=== PATIENT | male | born 1995 | race African-American/Black ===

== ENCOUNTER 2017-02-01 14:45 | Emergency (ER) | payer SELFPAY ==
[~2017-02-01] VITALS: Ht 182.9 cm; Wt 74.4 kg
[~2017-02-01 14:45] MED LIST: ALBU8.5H3 IH; BENZ100C PO; HYDR-2666 PO; IBUP800T PO; MUPI15CR TP; NAPR500T3 PO; SULF1TAB24 PO; [UNRECOGNIZED DRUG - CODE] MM; [UNRECOGNIZED DRUG - CODE] PO
[2017-02-01 15:03] VITALS: BP 142/83
--- NOTE | 2017-02-01 15:44 | PHYS DOC ---
Past History Past Medical History: No Pertinent History Past Surgical History: No Surgical History Alcohol Use: None Drug Use: None Adult General Chief Complaint Chief Complaint: BACK PAIN OR INJURY [facility] HPI 21-year-old female patient complaining of back pain for the last one week as a constant pain just radiation, no lives, fever chills, injury. 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 Review of Systems Review of Systems Constitutional: Denies fever or chills [] Eyes: Denies change in visual acuity, redness, or eye pain [] HENT: Denies nasal congestion or sore throat [] Respiratory: Denies cough or shortness of breath [] Cardiovascular: No additional information not addressed in HPI [] GI: Denies abdominal pain, nausea, vomiting, bloody stools or diarrhea [] : Denies dysuria or hematuria [] Musculoskeletal: see HPI Integument: Denies rash or skin lesions [] Neurologic: Denies headache, focal weakness or sensory changes [] Endocrine: Denies polyuria or polydipsia [] Current Medications Current Medications Current Medications Medications (Trade) Dose Ordered Sig/Stephon Start Time Stop Time Status Last Admin Dose Admin Cyclobenzaprine HCl (Flexeril) 10 mg 1X ONCE 02/01/17 16:00 02/01/17 16:01 Ibuprofen (Motrin) 600 mg 1X ONCE 02/01/17 16:00 02/01/17 16:01 Allergies Allergies Allergies Coded Allergies Type Severity Reaction Last Updated Verified No Known Drug Allergies 02/01/17 No Physical Exam Physical Exam Constitutional: Well developed, well nourished, mild distress, non-toxic appearance. [] HENT: Normocephalic, atraumatic, bilateral external ears normal, oropharynx moist, no oral exudates, nose normal. [] Eyes: PERRLA, EOMI, conjunctiva normal, no discharge. [] Neck: Normal range of motion, no tenderness, supple, no stridor. [] Cardiovascular:Heart rate regular rhythm, no murmur [] Lungs & Thorax: Bilateral breath sounds clear to auscultation [] Abdomen: Bowel sounds normal, soft, no tenderness, no masses, no pulsatile masses. [] Skin: Warm, dry, no erythema, no rash. [] Back: no deformity or midline tenderness,limited ROM of thoracic spine] Extremities: No tenderness, no cyanosis, no clubbing, ROM intact, no edema. [] Neurologic: Alert and oriented X 3, normal motor function, normal sensory function, no focal deficits noted. [] Psychologic: Affect normal, judgement normal, mood normal. [] Current Patient Data Vital Signs Vital Signs Date Time Temp Pulse Resp B/P Pulse Ox O2 Delivery O2 Flow Rate FiO2 02/01/17 15:03 99.0 109 18 96 Room Air EKG EKG [] Radiology/Procedures Radiology/Procedures [] Dragon Disclaimer Dragon Disclaimer This chart was dictated in whole or in part using Voice Recognition software in a busy, high-work load, and often noisy Emergency Department environment. It may contain unintended and wholly unrecognized errors or omissions. Departure Departure: Impression: Primary Impression: Thoracic sprain Disposition: HOME, SELF-CARE (at 1549) Condition: STABLE Referrals: PCP,NO (PCP) Patient Instructions: Thoracic Strain Additional Instructions: Apply ice on your back Follow up with your doctor as needed Scripts Naproxen (Naprosyn)500 Mg Tablet1 Tab PO BID #14 TAB Ref 1 Prov:ALICIA HERNÁNDEZ MD 02/01/17 Cyclobenzaprine Hcl 10 Mg Tablet1 Tab PO TID #30 TAB Prov:ALICIA HERNÁNDEZ MD 02/01/17 ALICIA HERNÁNDEZ MD Feb 01, 2017 15:44
[2017-02-01] MEDS ORDERED: CYCL10TA2 PO (15:51)
[2017-02-01] MEDS ORDERED: NAPR500T PO (15:51)
[2017-02-01] MEDS ORDERED: IBUPROFEN 600 MG TABLET. PO ONE (16:00)
[2017-02-01] MEDS ORDERED: CYCLOBENZAPRINE 10 MG TABLET. PO ONE (16:00)
== END 2017-02-01 15:52 | disposition home or self-care (01) ==
LOC: ER 14:45
DX: S23.3XXA Sprain of ligaments of thoracic spine, initial encounter (principal); X58.XXXA Exposure to other specified factors, initial encounter; Y93.89 Activity, other specified; Y99.8 Other external cause status; Y92.89 Other specified places as the place of occurrence of the external cause
CPT/HCPCS: 99283

== ENCOUNTER 2017-02-25 08:54 | Emergency (ER) | payer SELFPAY ==
[~2017-02-25] VITALS: Ht 182.9 cm; Wt 74.4 kg
[~2017-02-25 08:54] MED LIST changes: +CYCL10TA2 PO; +NAPR500T PO
[2017-02-25 09:02] VITALS: BP 140/84
[2017-02-25] MEDS ORDERED: NAPR550T3 PO (09:15)
--- NOTE | 2017-02-25 09:24 | ED.ADGEN ---
Past History Past Medical History: No Pertinent History Past Surgical History: No Surgical History Alcohol Use: None Drug Use: None Adult General HPI HPI Patient is a 21-year-old male presents emergency department complaining of back pain. He tells me that he has had "years of back issues" that have gotten worse the last 1 month. 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 He reports that he has been taking the naproxen and Flexeril that was prescribed to him one month ago when he presented emergency Department for the same problem. Continues to have pain. Denies any bowel or bladder dysfunction or saddle anesthesia. Review of Systems Review of Systems Constitutional: Denies fever or chills [] Eyes: Denies change in visual acuity, redness, or eye pain [] HENT: Denies nasal congestion or sore throat [] Respiratory: Denies cough or shortness of breath [] Cardiovascular: No additional information not addressed in HPI [] GI: Denies abdominal pain, nausea, vomiting, bloody stools or diarrhea [] : Denies dysuria or hematuria [] Musculoskeletal: Denies back pain or joint pain [] Integument: Denies rash or skin lesions [] Neurologic: Denies headache, focal weakness or sensory changes [] Endocrine: Denies polyuria or polydipsia [] Current Medications Current Medications Current Medications Medications (Trade) Dose Ordered Sig/[facility] Start Time Stop Time Status Last Admin Dose Admin Dexamethasone Sodium Phosphate (Decadron) 10 mg 1X ONCE 02/25/17 09:45 02/25/17 09:46 Allergies Allergies Allergies Coded Allergies Type Severity Reaction Last Updated Verified No Known Drug Allergies 02/25/17 No Physical Exam Physical Exam Constitutional: Well developed, well nourished, no acute distress, non-toxic appearance. [] HENT: Normocephalic, atraumatic, bilateral external ears normal, oropharynx moist, no oral exudates, nose normal. [] Eyes: PERRLA, EOMI, conjunctiva normal, no discharge. [] Neck: Normal range of motion, no tenderness, supple, no stridor. [] Cardiovascular:Heart rate regular rhythm, no murmur [] Lungs & Thorax: Bilateral breath sounds clear to auscultation [] Abdomen: Bowel sounds normal, soft, no tenderness, no masses, no pulsatile masses. [] Skin: Warm, dry, no erythema, no rash. [] Back: No tenderness, no CVA tenderness. [] Extremities: No tenderness, no cyanosis, no clubbing, ROM intact, no edema. [] Neurologic: Alert and oriented X 3, normal motor function, normal sensory function, no focal deficits noted. [] Psychologic: Affect normal, judgement normal, mood normal. [] Current Patient Data Vital Signs Vital Signs Date Time Temp Pulse Resp B/P Pulse Ox O2 Delivery O2 Flow Rate FiO2 02/25/17 09:02 98.6 75 18 99 Room Air EKG EKG [] Radiology/Procedures Radiology/Procedures [] Course & Med Decision Making Course & Med Decision Making Pertinent Labs and Imaging studies reviewed. (See chart for details) We will give the patient a dose of Decadron here today and sent him out with a prescription for Naprosyn. I did inform him that he will need to follow with the primary care physician potentially even start physical therapy. [] Final Impression Final Impression Back pain [] Problems: Dragon Disclaimer Dragon Disclaimer This electronic medical record was generated, in whole or in part, using a voice recognition dictation system. KEERTHI LIZ MD Feb 25, 2017 09:23
[2017-02-25] MEDS: DEXAMETHASONE SOD PHOS 10 MG/ML VIAL IM ONE (09:31)
== END 2017-02-25 09:34 | disposition home or self-care (01) ==
LOC: ER 08:54
DX: M54.9 Dorsalgia, unspecified (principal)
CPT/HCPCS: 96372; 99283; J1100

== ENCOUNTER 2018-07-24 21:08 | Emergency (ER) | payer SELFPAY ==
[~2018-07-24] VITALS: Ht 182.9 cm; Wt 74.5 kg
[~2018-07-24 21:08] MED LIST changes: -ALBU8.5H3 IH; +ALBU8.5H8 IH; +CYCL-331 PO; -CYCL10TA2 PO; -HYDR-2666 PO; +HYDR-2758 PO; -IBUP800T PO; +IBUP800T19 PO; +NAPR-514 PO; +NAPR-677 PO; +NAPR-683 PO; -NAPR500T PO; -NAPR500T3 PO
--- NOTE | 2018-07-24 21:19 | ED.ADGEN ---
Past History Past Medical History: No Pertinent History Past Surgical History: No Surgical History Alcohol Use: None Drug Use: None Adult General Chief Complaint Chief Complaint ".. I got a sore throat.. and cough.. and wheezing... and I also feel like I got a fever..." HPI HPI Patient is a 23 year old male who presents with above hx and complaints with above history of pharyngitis, fever and wheezing. Patient has known history of asthma. Has never been intubated for his asthma. Has been exposed to prevent and has an upper respiratory infection. No recent travel. No history immunosuppression. Patient does not know a best because. Patient does continue to smoke. Patient's asthma triggers are upper respiratory infections. Review of Systems Review of Systems Constitutional: History of fever Eyes: Denies change in visual acuity, redness, or eye pain [] HENT: History of sore throat [] Respiratory: History of cough and wheezing Cardiovascular: No additional information not addressed in HPI [] GI: Denies abdominal pain, nausea, vomiting, bloody stools or diarrhea [] : Denies dysuria or hematuria [] Musculoskeletal: Denies back pain or joint pain [] Integument: Denies rash or skin lesions [] Neurologic: Denies headache, focal weakness or sensory changes [] Endocrine: Denies polyuria or polydipsia [] All other systems were reviewed and found to be within normal limits, except as documented in this note. Family History Family History Asthma Current Medications Current Medications Current Medications Medications (Trade) Dose Ordered Sig/Stephon Start Time Stop Time Status Last Admin Dose Admin Albuterol Sulfate (Ventolin Hfa Inhaler) 2 puff 1X ONCE 07/24/18 22:30 07/24/18 22:30 DC 07/24/18 22:18 2 PUFF Diphenhydramine HCl (Benadryl) 25 mg STK-MED ONCE 07/24/18 21:57 07/24/18 21:58 DC Ibuprofen (Motrin) 600 mg STK-MED ONCE 07/24/18 21:58 07/24/18 21:59 DC Prednisone (Prednisone) 20 mg STK-MED ONCE 07/24/18 21:57 07/24/18 21:58 DC Allergies Allergies Allergies Coded Allergies Type Severity Reaction Last Updated Verified No Known Drug Allergies 02/25/17 No Physical Exam Physical Exam Constitutional: Well developed, well nourished, no acute distress, non-toxic appearance. [] HENT: Normocephalic, atraumatic, bilateral external ears normal, oropharynx moist, injected pharynx no oral exudates, nose clear rhinorrhea] Eyes: PERRLA, EOMI, conjunctiva normal, no discharge. [] Neck: Normal range of motion, no tenderness, supple, no stridor. [] Cardiovascular:Heart rate regular rhythm, no murmur [] Lungs & Thorax: Bilateral breath sounds equal at apex with few scattered wheezes on auscultation [] Abdomen: Bowel sounds normal, soft, no tenderness, no masses, no pulsatile masses. [] Skin: Warm, dry, no erythema, no rash. [] Back: No tenderness, no CVA tenderness. [] Extremities: No tenderness, no cyanosis, no clubbing, ROM intact, no edema. [] Neurologic: Alert and oriented X 3, normal motor function, normal sensory function, no focal deficits noted. [] Psychologic: Affect normal, judgement normal, mood normal. [] Current Patient Data Vital Signs Vital Signs Date Time Temp Pulse Resp B/P (MAP) Pulse Ox O2 Delivery O2 Flow Rate FiO2 07/24/18 22:18 99 20 138/67 (90) 99 Room Air 07/24/18 21:17 100.0 Lab Results Laboratory Tests Test 07/24/18 22:00 Group A Streptococcus Rapid Negative (NEGATIVE) EKG EKG [] Radiology/Procedures Radiology/Procedures [] Course & Med Decision Making Course & Med Decision Making Pertinent Labs and Imaging studies reviewed. (See chart for details). Gargle with Listerine 4 times a day. Follow-up primary care. Take Tylenol or ibuprofen for fevers. Use MDI 2 puffs 4 times a day. Take prednisone 50 mg a day for 5 days. Benadryl 25-50 mg 4 times a day may be helpful. Must follow-up. Return if any concerns. Patient strongly encouraged to stop smoking [] Final Impression Final Impression 1. Viral syndrome 2. Pharyngitis 3. Asthma 4. Tobacco abuse[] Dragon Disclaimer Dragon Disclaimer This electronic medical record was generated, in whole or in part, using a voice recognition dictation system. OUMAR ENGEL MD Jul 24, 2018 21:19
[2018-07-24] MEDS ORDERED: ALBU2.5V5 NEB (21:44)
[2018-07-24] MEDS ORDERED: PRED50TA PO (21:44)
[2018-07-24] MEDS ORDERED: predniSONE 20 MG TABLET ONE (21:57)
[2018-07-24] MEDS ORDERED: diphenhydrAMINE HCL 25 MG CAPSULE PO ONE ×2 (21:57→22:00)
[2018-07-24] MEDS ORDERED: IBUPROFEN 600 MG TABLET. PO ONE ×2 (21:58→22:00)
[2018-07-24] MEDS ORDERED: predniSONE 20 MG TABLET PO ONE (22:00)
[2018-07-24 22:18] VITALS: BP 138/67
[2018-07-24] MEDS ORDERED: ALBUTEROL SULFATE 8GM INHALER. INH ONE (22:30)
== END 2018-07-24 22:27 | disposition home or self-care (01) ==
LOC: ER 21:08
DX: B34.9 Viral infection, unspecified (principal); J02.9 Acute pharyngitis, unspecified; J45.909 Unspecified asthma, uncomplicated; Z72.0 Tobacco use
CPT/HCPCS: 87070; 87880; 94640; 99284; J7512; J7613; Q0163

== ENCOUNTER 2020-12-13 07:34 | Emergency (ER) | payer SELFPAY ==
[~2020-12-13] VITALS: Ht 185.4 cm; Wt 100.0 kg
[~2020-12-13 07:34] MED LIST changes: +ALBU2.5V5 NEB; +ALBU2.5V8 IH; -ALBU8.5H8 IH; +HYDR-2155 PO; -HYDR-2758 PO; +PRED50TA PO
[2020-12-13 07:38] VITALS: BP 149/99
[2020-12-13] MEDS ORDERED: PENI500T PO (07:47)
--- NOTE | 2020-12-13 07:47 | PHYS DOC ---
Past History Past Medical History: No Pertinent History Past Surgical History: No Surgical History Alcohol Use: None Drug Use: None General Adult EDM: Chief Complaint: Dental pain HPI: HPI: This is a pleasant 25-year-old male presenting with dental pain. Its a throbbing aching nonradiating mild to moderate pain. He denies any fevers chills. He denies any other complaints. Review of systems negative for drooling difficulty swallowing neck swelling. He denies chest pain shortness of breath. All other review of systems negative. ED course: 25-year-old male presenting with dental pain. We will refer him to a dentist today and prescribe him oral antibiotics. Ibuprofen for pain. Return for any worsening signs or symptoms. The patient has been examined and was not found to have an emergency medical condition. The patient was then discharged home in stable condition to follow up with a dentist today. They were to return if their symptoms worsened or if they were concerned for any reason. They were also instructed to return to the emergency department if they were unable to get the recommended and appropriate follow-up. [id number] discharge instructions and return precautions were given. Patient's questions were answered to their satisfaction. Patient is comfortable with plan. Allergies: Allergies: Allergies Coded Allergies Type Severity Reaction Last Updated Verified No Known Drug Allergies 02/25/17 No Physical Exam: PE: Constitutional: Well developed, well nourished, no acute distress, non-toxic appearance. [] HENT: Normocephalic, atraumatic, bilateral external ears normal, oropharynx moist, no oral exudates, nose normal. Oropharyngeal region shows no swelling of the tongue. Pharynx is normal in appearance. No difficulty swallowing. Resting comfortably in examination room without any distress. He has some tooth decay. No obvious abscess. Eyes: PERRLA, EOMI, conjunctiva normal, no discharge. [] Neck: Normal range of motion, no tenderness, supple, no stridor. [] Cardiovascular:Heart rate regular rhythm, no murmur [] Lungs & Thorax: Bilateral breath sounds clear to auscultation [] Abdomen: Bowel sounds normal, soft, no tenderness, no masses, no pulsatile masses. [] Skin: Warm, dry, no erythema, no rash. [] Back: No tenderness, no CVA tenderness. [] Extremities: No tenderness, no cyanosis, no clubbing, ROM intact, no edema. [] Neurologic: Alert and oriented X 3, normal motor function, normal sensory function, no focal deficits noted. [] Psychologic: Affect normal, judgement normal, mood normal. [] EKG: EKG: [] Radiology/Procedures: Radiology/Procedures: [] Heart Score: Risk Factors: Risk Factors: DM, Current or recent (<one month) smoker, HTN, HLP, family history of CAD, obesity. Risk Scores: Score 0 - 3: 2.5% MACE over next 6 weeks - Discharge Home Score 4 - 6: 20.3% MACE over next 6 weeks - Admit for Clinical Observation Score 7 - 10: 72.7% MACE over next 6 weeks - Early Invasive Strategies Course & Med Decision Making: Course & Med Decision Making Pertinent Labs and Imaging studies reviewed. (See chart for details) [] Dragon Disclaimer: Dragon Disclaimer: This electronic medical record was generated, in whole or in part, using a voice recognition dictation system. Departure Departure: Impression: Primary Impression: Pain, dental Disposition: 01 DC HOME SELF CARE/HOMELESS Condition: STABLE Referrals: PCP,NO (PCP) Patient Instructions: Dental Pain, [id number] Additional Instructions: EMERGENCY DEPARTMENT GENERAL DISCHARGE INSTRUCTIONS Go to your dentist or a local dentist today or tomorrow. Return to the emergency department if you have any new or concerning findings. Thank you for coming to [facility] Emergency Department (ED) today and trusting us with you care. We trust that you had a positive experience in our Emergency Department. If you wish to speak to the department management, you may call the Director at [phone]. YOUR FOLLOW UP INSTRUCTIONS ARE FOLLOWS: 1. Do you have a private Doctor? If you do not have a private doctor, please ask for a resource list of physicians or clinics that may be able to assist you with follow up care. 2. If a lab test or culture has been done and does not come back immediately, your results will be reviewed and you will be notified if you need a change in treatment. ADDITIONAL INSTRUCTIONS AND INFORMATION: 1. Your care today has been supervised by a physician who is specially trained in emergency care. Many problems require more than one evaluation for a complete diagnosis and treatment. We recommend that you schedule your follow up appointment as recommended to ensure complete treatment of you illness or injury. If you are unable to obtain follow up care and continue to have a problem, or if your condition worsens, we recommend that you return to the ED. 2. We are not able to safely determine your condition over the phone nor are we able to give sound medical advice over the phone. For these safety reasons, if you call for medical advice we will ask you to come to the ED for further evaluation. 3. If you have any questions regarding these discharge instructions please call the ED at [phone]. SAFETY INFORMATION: In the interest of safety, wellness, and injury prevention; we encourage you to wear your sealbelt, if you smoke; quite smoking, and we encourage family to use a protective helmet for bicycling and other sporting events that present an increased risk for head injury. IF YOUR SYMPTOMS WORSEN OR NEW SYMPTOMS DEVELOP, OR YOU HAVE CONCERNS ABOUT YOUR CONDITION; OR IF YOUR CONDITION WORSENS WHILE YOU ARE WAITING FOR YOUR FOLLOW UP APPOINTMENT; EITHER CONTACT YOUR PRIMARY CARE DOCTOR, THE PHYSICIAN WHOSE NAME AND NUMBER YOU WERE GIVEN, OR RETURN TO THE ED IMMEDIATELY. This condition should be evaluated by your primary care physician and any necessary consulting services for continued management within a few days (1-2) after discharge. Return to the emergency department if you have any new or concerning symptoms including but not limited to fever, chills, nausea, vomiting, intractable pain, any new rashes, chest pain, shortness of breath, uncontrolled bleeding, difficulty breathing, and/or vision loss. Scripts Penicillin V Potassium (PENICILLIN V POTASSIUM) 500 Mg Tablet 1 TAB PO BID for dental pain, #10 TAB 0 Refills Prov: GOPI DELGADO MD 12/13/20 GOPI DELGADO MD Dec 13, 2020 07:47
== END 2020-12-13 08:15 | disposition home or self-care (01) ==
LOC: ER 07:34
DX: K02.9 Dental caries, unspecified (principal); K08.89 Other specified disorders of teeth and supporting structures
CPT/HCPCS: 99283